=== PATIENT | female | born 1960 | race Caucasian/White ===

== ENCOUNTER 2016-11-10 10:06 | Emergency (ER) | payer OTHER ==
[~2016-11-10] VITALS: Ht 152.4 cm; Wt 86.4 kg
[~2016-11-10 10:06] MED LIST: DENIES; METO-103 PO; METO-448; OMEP20CA9; [UNRECOGNIZED DRUG - OTHER]
[2016-11-10 10:17] VITALS: Ht 152.4 cm; Wt 86.4 kg
[2016-11-10] MEDS ORDERED: KETOROLAC 30 MG INJ IM STA (11:21)
[2016-11-10] MEDS ORDERED: HYDR-906 PO (11:29)
--- NOTE | 2016-11-10 11:34 | ERD ---
ER Documentation Chief Complaint Date/Time DATE: 11/10/16 TIME: 11:31 Chief Complaint RT KNEE PAIN, SUPPOSED TO HAVE SURGERY THURSDAY, "TOO MUCH PAIN' HPI This is a 52-year-old female who presents the emergency department today complaining of bilateral knee pain right greater than left. States she is supposed to have surgery this Thursday but she has here because she has "too much pain". States she is unsure why she is having surgery. States she takes diclofenac. Denies any fevers or chills. Denies any trauma. ROS All systems reviewed and are negative except as per history of present illness. Medications Home Meds Active Scripts Hydrocodone/Acetaminophen ([place] 5-325 Tablet) 1 Each Tablet, 1 TAB PO Q6H Y for PAIN, #7 TAB Prov:AVTAR ROSSI PA-C 11/10/16 Reported Medications [Oxybutylin] No Conflict Check 08/28/11 Metoprolol Succinate (Toprol Xl) 50 Mg Tab.sr.24h, 50 MG PO DAILY 08/28/11 Metoprolol Tartrate* (Lopressor*) 25 Mg Tab, BID 02/19/11 Omeprazole* (Prilosec*) 20 Mg Capsule.dr, bid 02/19/11 [Denies] No Conflict Check 04/28/10 Allergies Allergies: Coded Allergies: No Known Drug Allergies (Verified Allergy, Mild, 10/26/12) PMhx/Soc History of Surgery: No Anesthesia Reaction: No Hx Neurological Disorder: No Hx Respiratory Disorders: No Hx Cardiac Disorders: Yes (htn) Hx Psychiatric Problems: No Hx Miscellaneous Medical Probl: Yes (gastritis) Hx Alcohol Use: No Hx Substance Use: No Hx Tobacco Use: No Smoking Status: Never smoker Physical Exam Vitals Vital Signs Date Time Temp Pulse Resp B/P Pulse Ox O2 Delivery O2 Flow Rate FiO2 11/10/16 10:17 98.8 90 22 195/82 98 Physical Exam Const: Sitting in wheelchair, tearful Head: Atraumatic Eyes: Normal Conjunctiva ENT: Normal External Ears, Nose and Mouth. Neck: Full range of motion..~ No meningismus. Resp: Clear to auscultation bilaterally Cardio: Regular rate and rhythm, no murmurs Abd: Soft, non tender, non distended. Normal bowel sounds Skin: No petechiae or rashes Back: No midline or flank tenderness Ext: Bilateral knees with no obvious deformity. No effusion. No ecchymosis. Right knee diffusely tender to palpation. Pulses 2+. Distal neurovascularly intact. Neur: Awake and alert Psych: Normal Mood and Affect Results 24 hrs Current Medications Medications (Trade) Dose Ordered Sig/Kevin Route PRN Reason Start Time Stop Time Status Last Admin Dose Admin Ketorolac Tromethamine (Toradol) 30 mg ONCE STAT IM 11/10/16 11:21 11/10/16 11:22 DC 11/10/16 11:29 Procedures/MDM This a 56-year-old female who presents to the emergency department today complaining of bilateral knee pain however her right is greater than her left. Patient states that she is supposed to have surgery on Thursday. She states her doctor is Dr. Maki at [facility]. Patient showed me the business card and provider Glynn appears to be a physician assistant business manager. Patient cannot tell me why she was having surgery but she was told that they would open up her knee. This is the patient's first visit to this emergency room since 2014. Upon review of previous medical records patient was diagnosed with osteoarthritis in 2012. She has had no new trauma given that patient does appear to have follow-up this Thursday do not feel that she requires further workup or imaging at this time. She is afebrile and otherwise well-appearing. Low suspicion for septic joint or gout. Low suspicion for acute fracture dislocation. Patient symptoms at this time consistent with right knee pain that appears to be chronic in nature. Patient was given a Toradol injection here in the emergency department. Patient was tearful and sitting in a wheelchair complaining of "too much pain and therefore I will give her 7 tablets of [place] for home to hold her over until she is seen on Thursday for her surgery. Patient does not appear to be exhibiting drug-seeking behaviors. Patient was instructed to continue taking her diclofenac. At this time the patient is stable for discharge and outpatient management. Patient should follow up with their PCP in the next 1-2 days. They may return to the emergency department sooner for any persistent or worsening of symptoms. Patient understood and agreed with the plan. Departure Diagnosis: Primary Impression: Knee pain Laterality: right Chronicity: chronic Qualified Code: M25.561 - Chronic pain of right knee Condition: Fair Patient Instructions: What Is Arthritis? Referrals: RENE CHASE (PCP) Additional Instructions: Llame al doctor MAANA y damian kristyn MIN PARA DENTRO DE 1-2 MARX.Dgale a la secretaria que nosotros le instruimos hacer esta min.Avise o llame si delatorre condicin se empeora antes de la min. Regresa aqui si peor o no mejor. Keep your appointment for surgery on Thursday Take [place] for severe pain otherwise take Tylenol or Naprosyn or your diclofenac AVTAR ROSSI PA-C Nov 10, 2016 11:34
== END 2016-11-10 11:52 | disposition home or self-care (01) ==
LOC: FTE 10:06
DX: M25.561 Pain in right knee (principal); I10 Essential (primary) hypertension
CPT/HCPCS: 96372; J1885; Z7502